=== PATIENT | female | born 1980 | race African-American/Black ===

== ENCOUNTER 2018-01-28 11:02 | Emergency (ER) | payer MEDICAID ==
[~2018-01-28] VITALS: Ht 152.4 cm; Wt 54.4 kg
[2018-01-28 11:47] VITALS: BP 130/64
== END 2018-01-28 12:25 | disposition home or self-care (01) ==
LOC: ER 11:06
DX: S60.452A Superficial foreign body of right middle finger, initial encounter (principal); W46.1XXA Contact with contaminated hypodermic needle, initial encounter; Y93.89 Activity, other specified; Y92.89 Other specified places as the place of occurrence of the external cause; Y99.8 Other external cause status
CPT/HCPCS: A4606; Z7502; Z7610